=== PATIENT | female | born 1995 | race African-American/Black ===

== ENCOUNTER 2023-11-14 12:58 | Emergency (ER) | payer MEDICAID ==
[~2023-11-14] VITALS: Ht 170.2 cm; Wt 77.1 kg
[2023-11-14 13:14] VITALS: BP 128/75; TEMP 98.3; O2SAT 100
[2023-11-14 15:12] LABS: CLARITY URINE TURBID (CLEAR); COLOR URINE DARK YELLOW (YELLOW); GLUCOSE URINE NEGATIVE (NEGATIVE); KETONES URINE 2+ (NEGATIVE); LEUKOCYTE ESTERASE URINE NEGATIVE (NEGATIVE); NITRITE URINE NEGATIVE (NEGATIVE); OCCULT BLOOD URINE NEGATIVE (NEGATIVE); PH URINE 5.5 (4.5-8.0); PROTEIN URINE 1+ (NEGATIVE); SPECIFIC GRAVITY URINE 1.035 (1.005-1.030)
[2023-11-14] MEDS: MAGNESIUM/ALUMINUM HYDROXIDE/SIMETHICONE 30ML UDC PO ONE (15:21)
[2023-11-14 15:40] LABS: BASOPHILS % 0.3 % (0.0-2.0); HEMATOCRIT. 38.8 % (36.0-48.0); HEMOGLOBIN. 12.8 g/dL (12.0-16.0); LYMPHOCYTES % 17.4 % (20.0-50.0); MEAN CORPUSCULAR HEMOGLOBIN 28.9 pg (28.0-32.0); MEAN CORPUSCULAR HGB CONC 33.1 g/dL (31.0-37.0); MEAN CORPUSCULAR VOLUME 87.3 fL (81.0-99.0); MEAN PLATELET VOLUME 8.1 fl (7.4-10.4); MONOCYTES % 11.5 % (2.0-8.0); NEUTROPHILS % 69.8 % (40.0-76.0); PLATELET 287 x1000/uL (130-400); RED BLOOD CELL COUNT 4.44 mill/uL (4.2-5.4); RED CELL DISTRIBUTION WIDTH 15.3 % (11.6-14.6); WHITE BLOOD COUNT 8.4 x1000/uL (4.5-11.0)
[2023-11-14 15:45] LABS: SQUAMOUS EPITHELIAL CELL URINE 2+ /lpf (RARE/1+)
[2023-11-14 15:46] LABS: AMORPHOUS SEDIMENT URINE 3+ /lpf; BACTERIA URINE TRACE; RBC URINE NONE SEEN /hpf (0-2); WBC URINE 0-2 /hpf (0-2)
[2023-11-14 15:49] LABS: ALANINE AMINOTRANSFERASE 10 IU/L (10-49); ALBUMIN 4.5 g/dL (3.2-4.8); ASPARTATE AMINOTRANSFERASE 14 IU/L (<34); BILIRUBIN TOTAL 0.4 mg/dL (0.1-1.0); CALCIUM 9.2 mg/dL (8.7-10.4); CARBON DIOXIDE 26 mEq/L (21-32); CHLORIDE 106 mEq/L (98-107); GLUCOSE 84 mg/dL (70-105); POTASSIUM 3.9 mEq/L (3.5-5.1); PROTEIN TOTAL 8.1 g/dL (6.0-8.3); SODIUM 139 mEq/L (136-145); UREA NITROGEN BLOOD 9 mg/dL (9-23)
[2023-11-14] MEDS ORDERED: IBUP-2028 MT (16:00)
[2023-11-14] MEDS ORDERED: IMOD MT (16:00)
[2023-11-14] MEDS ORDERED: PHEN51CR24 TP (16:36)
[2023-11-14 16:47] VITALS: PULSE 72; RESP 16
[2023-11-18 04:07] LABS: CHLAMYDIA TRACHOMATIS NAA Positive (Negative); NEISSERIA GONORRHOEAE NAA Negative (Negative)
== END 2023-11-14 17:07 | disposition home or self-care (01) ==
LOC: ER 12:58
DX: K64.9 Unspecified hemorrhoids (principal); R19.7 Diarrhea, unspecified
CPT/HCPCS: 36415; 71045; 76830; 76856; 80053; 81003; 81025; 85025; 87210; 87491; 87591; 99284

== ENCOUNTER 2024-08-28 11:40 | Emergency (ER) | payer MEDICAID ==
[~2024-08-28] VITALS: Ht 170.2 cm; Wt 77.1 kg
[~2024-08-28 11:40] MED LIST: AZIT500T8 MT; IBUP-2028 MT; IMOD MT; PHEN51CR24 TP
[2024-08-28 12:02] VITALS: BP 125/86; PULSE 84; RESP 16; TEMP 98.3; O2SAT 100
[2024-08-28 13:25] LABS: BASOPHILS % 0.3 % (0.0-2.0); EOSINOPHILS % 0.7 % (0.0-5.0); HEMATOCRIT. 38.3 % (36.0-48.0); HEMOGLOBIN. 12.8 g/dL (12.0-16.0); LYMPHOCYTES % 20.2 % (20.0-50.0); MEAN CORPUSCULAR HEMOGLOBIN 30.3 pg (28.0-32.0); MEAN CORPUSCULAR HGB CONC 33.4 g/dL (31.0-37.0); MEAN CORPUSCULAR VOLUME 90.7 fL (81.0-99.0); MEAN PLATELET VOLUME 8.8 fl (7.4-10.4); MONOCYTES % 7.8 % (2.0-8.0); PLATELET 248 x1000/uL (130-400); RED BLOOD CELL COUNT 4.23 mill/uL (4.2-5.4); RED CELL DISTRIBUTION WIDTH 15.1 % (11.6-14.6); WHITE BLOOD COUNT 7.6 x1000/uL (4.5-11.0)
[2024-08-28 13:34] LABS: CHLORIDE 108 mEq/L (98-107); POTASSIUM 3.6 mEq/L (3.5-5.1); SODIUM 140 mEq/L (136-145)
[2024-08-28 13:35] LABS: CARBON DIOXIDE 22 mEq/L (21-32)
[2024-08-28 13:40] LABS: CREATININE 0.9 mg/dL (0.6-1.0); GLUCOSE 97 mg/dL (70-105); UREA NITROGEN BLOOD 6 mg/dL (9-23)
[2024-08-28 13:42] LABS: ALANINE AMINOTRANSFERASE 12 IU/L (10-49); ALBUMIN 4.2 g/dL (3.2-4.8); ASPARTATE AMINOTRANSFERASE 17 IU/L (<34); BILIRUBIN DIRECT 0.2 mg/dL (<=3.0); BILIRUBIN TOTAL 0.9 mg/dL (0.1-1.0); TROPONIN I HIGH SENSITIVITY < 4 ng/L (3.0-34)
[2024-08-28 13:43] LABS: PROTEIN TOTAL 6.6 g/dL (6.0-8.3)
== END 2024-08-28 18:19 | disposition home or self-care (01) ==
LOC: ER 14:21
DX: R07.9 Chest pain, unspecified (principal); Z53.21 Procedure and treatment not carried out due to patient leaving prior to being seen by health care provider
CPT/HCPCS: 36415; 71045; 80048; 80076; 84484; 85025; 93005

== ENCOUNTER 2025-05-30 08:31 | Emergency (ER) | payer MEDICAID ==
[~2025-05-30] VITALS: Ht 170.2 cm; Wt 73.0 kg
[~2025-05-30 08:31] MED LIST changes: -AZIT500T8 MT; -IBUP-2028 MT; +MIDO5TAB4 MT; +ONDA4TAB50 MT; +PROT40 MT
[2025-05-30 08:40] VITALS: O2SAT 96
[2025-05-30 08:41] VITALS: BP 95/64; PULSE 85; RESP 19; TEMP 36.9; O2SAT 100
[2025-05-30] MEDS ORDERED: P20 PO (10:12)
[2025-05-30] MEDS ORDERED: OXYC-100 MT (10:12)
[2025-05-30] MEDS ORDERED: ONDA-241 MT (10:12)
[2025-05-30] MEDS: PREDNISONE 20MG TABLET PO ONE (10:21)
[2025-05-30] MEDS: OXYCODONE HCL/ACETAMINOPHEN 5/325MG TABLET PO ONE (10:22)
[2025-05-30] MEDS: ONDANSETRON 4MG ODT PO ONE (10:22)
== END 2025-05-30 10:28 | disposition home or self-care (01) ==
LOC: ER 08:34
DX: K50.10 Crohn's disease of large intestine without complications (principal); Z79.52 Long term (current) use of systemic steroids; Z79.620 Long term (current) use of immunosuppressive biologic; Z79.899 Other long term (current) drug therapy; Z88.5 Allergy status to narcotic agent
CPT/HCPCS: 99284; Q0162; J7512

== ENCOUNTER 2025-08-24 11:55 | Emergency (ER) | payer MEDICAID ==
[~2025-08-24] VITALS: Ht 170.2 cm; Wt 73.0 kg
[~2025-08-24 11:55] MED LIST changes: +ONDA-241 MT; +OXYC-100 MT; +P20 PO
[2025-08-24 12:04] VITALS: O2SAT 100
[2025-08-24] MEDS: SODIUM CHLORIDE 0.9% 1,000 ML IV ONE (13:50)
[2025-08-24 14:01] LABS: BASOPHILS % 0.2 % (0.0-2.0); EOSINOPHILS % 0.2 % (0.0-5.0); HEMATOCRIT. 38.2 % (36.0-48.0); HEMOGLOBIN. 12.5 g/dL (12.0-16.0); LYMPHOCYTES % 9.8 % (20.0-50.0); MEAN PLATELET VOLUME 8.6 fl (7.4-10.4); MONOCYTES % 5.3 % (2.0-8.0); NEUTROPHILS % 84.5 % (40.0-76.0); PLATELET 240 x1000/uL (130-400); RED BLOOD CELL COUNT 4.26 mill/uL (4.2-5.4); RED CELL DISTRIBUTION WIDTH 15.7 % (11.6-14.6)
[2025-08-24] MEDS: ONDANSETRON HCL 4MG/2ML INJ IV ONE ×2 (14:24→17:24)
[2025-08-24] MEDS: MORPHINE SULFATE 4 MG/ML INJ (FOR IV/IM USE) IV ONE ×2 (14:24→17:24)
[2025-08-24 14:36] LABS: CREATININE 1.0 mg/dL (0.6-1.0); PROTEIN TOTAL 7.1 g/dL (6.0-8.3); UREA NITROGEN BLOOD 6 mg/dL (9-23)
[2025-08-24 14:37] LABS: C REACTIVE PROTEIN HIGH SENS 0.89 mg/l (<1.00)
[2025-08-24 14:38] LABS: ASPARTATE AMINOTRANSFERASE 21 IU/L (<34); BILIRUBIN TOTAL 0.7 mg/dL (0.1-1.0)
[2025-08-24 14:57] LABS: ERYTHROCYTE SEDIMENTATION RATE 4 mm/hr (0-20)
[2025-08-24 16:04] LABS: HCG SCREEN NEGATIVE
[2025-08-24] MEDS ORDERED: P20 PO (17:53)
[2025-08-24] MEDS ORDERED: ONDA-239 PO (17:53)
[2025-08-24] MEDS ORDERED: MAG355OR21 MT (17:53)
[2025-08-24] MEDS ORDERED: FAMO40TA70 PO (17:53)
[2025-08-24] MEDS ORDERED: METHYLPREDNISOLONE 40MG/ML INJ IV ONE (18:00)
[2025-08-24] MEDS: MAGNESIUM/ALUMINUM HYDROXIDE/SIMETHICONE 30ML UDC PO ONE (18:07)
[2025-08-24 18:08] VITALS: BP 122/70; PULSE 89; RESP 16; TEMP 36.7; O2SAT 100
[2025-08-24] MEDS: FAMOTIDINE 20MG/2ML VIAL IV ONE (18:08)
[2025-08-24] MEDS: METHYLPREDNISOLONE SOD SUCC 40MG/ML (ACT-O-VIAL) IV SCH (18:08)
[2025-08-24] MEDS ORDERED: IOHEXOL-300 100 ML BOTTLE ONE (23:22)
== END 2025-08-24 18:09 | disposition home or self-care (01) ==
LOC: ER 11:55 → CANBEDREQ 18:01 → ER 18:09
DX: K50.90 Crohn's disease, unspecified, without complications (principal); Z79.899 Other long term (current) drug therapy; Z98.890 Other specified postprocedural states; Z79.52 Long term (current) use of systemic steroids; Z88.5 Allergy status to narcotic agent
CPT/HCPCS: 99285; 74177; 96374; 96375; 80053; 84703; 86141; 85025; 85651; 36415; 96376; J2919; Q9967; J1308; J2405; J2270; J7030